=== PATIENT | male | born 2000 | race African-American/Black ===

== ENCOUNTER 2024-03-27 13:18 | Emergency (ER) | payer MEDICAID ==
[~2024-03-27] VITALS: Ht 177.8 cm; Wt 68.0 kg
[2024-03-27 13:28] VITALS: TEMP 98.7; O2SAT 100
[2024-03-27 14:29] VITALS: BP 114/61; PULSE 82; RESP 16
[2024-03-27] MEDS: IBUPROFEN 600MG TABLET PO STA (14:29)
[2024-03-27] MEDS ORDERED: IBUP-2029 MT (15:40)
== END 2024-03-27 16:26 | disposition home or self-care (01) ==
LOC: ER 13:18
DX: S20.213A Contusion of bilateral front wall of thorax, initial encounter (principal); V69.9XXA Occupant (driver) (passenger) of heavy transport vehicle injured in unspecified traffic accident, initial encounter; Y93.89 Activity, other specified; Y92.89 Other specified places as the place of occurrence of the external cause; Y99.8 Other external cause status
CPT/HCPCS: 71045; 74018; 99284